=== PATIENT | male | born 1970 | race Caucasian/White ===

== ENCOUNTER 2016-12-25 15:45 | Emergency (ER) | payer SELFPAY ==
[2016-12-25 15:51] VITALS: BP 144/91; BMI 27.3
[2016-12-25] MEDS ORDERED: TORADOL 60 MG VIAL IM ONE (16:49)
[2016-12-25] MEDS ORDERED: TORADOL 60 MG VIAL ONE (16:50)
--- NOTE | 2016-12-25 17:06 | DR.GENAD ---
HPI - PCP Primary Care Physician: none - Complaint/Symptoms Chief Complaint Doctors Comments: Agree with statement Chief Complaint:: right foot pain after kicking a block of wood - Source History Provided: Patient - Mode of Arrival Mode of Arrival: Wheelchair - Timing Onset of Chief Complaint: 12/25/16 PMH - PMH Past Medical History: No Past Surgical History: No - Family History History of Family Medical Conditions: No - Social History Does patient currently use any type of tobacco product: Yes Have you used tobacco products in the last 12 months: Yes Type of Tobacco Use: Cigarettes How many years tobacco product used: 35 Does any household member use tobacco: No Alcohol Use: None Do you use any recreational Drugs:: No Lives With: Family Lives Where: Home - infectious screening In the last 2 months have you had wt loss of >10#?: NO Have you had fever, night sweats or hemotysis?: No Have you traveled outside the country in the last 6 months?: No Isolation: Standard ROS - Review of Systems Eyes: No Symptoms Reported ENTM: No Symptoms Reported Respiratoy: No Symptoms Reported Cardiovascular: No Symptoms Reported Gastrointestinal/Abdominal: No Symptoms Reported Genitourinary: No Symptoms Reported Neurological: No Symptoms Reported Musculoskeletal: No Symptoms Reported Integumentary: No Symptoms Reported Hematologic/Lymphatic: No Symptoms Reported Endocrine: No Symptoms Reported Psychiatric: No Symptoms Reported All Other Systems: Reviewed and Negative PE - Vital Signs Vitals: Temperature 98.5 F Pulse Rate 71 Respiratory Rate 18 Blood Pressure 144/91 O2 Sat by Pulse Oximetry 99 - General Limitations: No Limitations General Appearance: Alert, In No Apparent Distress - Head Head Exam: Normal Inspection, Atraumatic - Eyes Eye exam: Normal Appearance, PERRL, EOMI - ENT ENT Exam: Normal Exam External Ear Exam: Normal External Inspection TM/Canal Exam: Bilateral Normal Nose Exam: Normal Nose Exam Mouth Exam: Normal Inspection Throat Exam: Normal Inspection - Neck Neck Exam: Normal Inspection - Chest Chest Inspection: Normal Inspection - Respiratory Respiratory Exam: Normal Lung Sounds Bilat Respiratory Exam: Bilateral Clear to Auscultation - Cardiovascular Cardiovascular Exam: Regular Rate, Normal Rhythm - Abdominal Exam Abdominal Exam: Normal Inspection Abdominal Tenderness: negative: RUQ, RLQ, LUQ, LLQ, Epigastrium, Suprapubic, Diffuse, Mild, Moderate, Severe, Other - Extremities Extremities Exam: Normal Inspection - Back Back Exam: Normal Inspection - Neurologic Neurological Exam: Alert, Oriented X3, CN II-XII Intact - Psychiatric Psychiatric Exam: Normal Affect - Skin Skin Exam: Warm, Dry ROR - XRAY XRAY Interpreted by: Radiologist (x ray foot: Dorsal foot edema/swelling without acute fracture/subluxation observed) - Diagnosis Discharge Problem: Contusion of foot, right Qualifiers: Encounter type: initial encounter Qualified Code(s): S90.31XA - Contusion of right foot, initial encounter - Discharge Plan Condition: Stable - Follow ups/Referrals Follow ups/Referrals: NFD,None [Primary Care Provider] - 3 days - Instructions
--- NOTE | 2016-12-25 17:41 | RAD ---
HISTORY: Foot pain Study: Complete three view series of the right foot. Comparison: None Findings: No acute fracture, subluxation, or dislocation is identified. The Lisfranc joint is intact. No erosi ve changes are seen to suggest inflammatory arthritis. No lytic bony lesion or bone forming lesion i s evident. Dorsal foot edema is appreciated. The remaining visualized portions of the talus and ozzie caneus are unremarkable. No radiopaque foreign body is seen. IMPRESSION: 1. Dorsal foot edema/swelling without acute fracture/subluxation observed Reported By:
== END 2016-12-25 18:27 | disposition home or self-care (01) ==
LOC: ER 15:55
DX: S90.31XA Contusion of right foot, initial encounter (principal); X58.XXXA Exposure to other specified factors, initial encounter
CPT/HCPCS: 73630; 96372; 99282; J1885

== ENCOUNTER 2017-05-31 15:58 | Emergency (ER) | payer SELFPAY ==
[2017-05-31 16:03] VITALS: BP 117/69; BMI 27.3
--- NOTE | 2017-05-31 16:19 | DR.GENAD ---
HPI - PCP Primary Care Physician: MARIAM - Complaint/Symptoms Chief Complaint:: PATIENT HAS BEEN HAVING UPPER RIGHT SIDED ABD. PAIN THAT HAS BEEN GOING ON FOR 2 WEEKS BUT NOW HE HAS BEEN SICK ON HIS STOMACH AND THINKS HE MIGHT HAVE BEEN RUNNING A FEVER. - Source History Provided: Patient - Mode of Arrival Mode of Arrival: Ambulatory - Timing Onset of Chief Complaint: 05/17/17 PMH - PMH Past Medical History: No Past Surgical History: Yes Past Surgical History Comment: HERNIA TIMES 2 - Family History History of Family Medical Conditions: Yes Family Medical History: Diabetes Mellitus, Coronary Artery Disease - Social History Does patient currently use any type of tobacco product: Yes Have you used tobacco products in the last 12 months: Yes Type of Tobacco Use: Cigarettes Does any household member use tobacco: No Alcohol Use: None Do you use any recreational Drugs:: No Lives With: Family Lives Where: Home - infectious screening In the last 2 months have you had wt loss of >10#?: NO Have you had fever, night sweats or hemotysis?: No Have you traveled outside the country in the last 6 months?: No Isolation: Standard ROS - Review of Systems Eyes: No Symptoms Reported ENTM: No Symptoms Reported Respiratoy: No Symptoms Reported Cardiovascular: No Symptoms Reported Gastrointestinal/Abdominal: No Symptoms Reported Genitourinary: No Symptoms Reported Neurological: No Symptoms Reported Musculoskeletal: Chest wall (right) Integumentary: No Symptoms Reported Hematologic/Lymphatic: No Symptoms Reported Endocrine: No Symptoms Reported Psychiatric: No Symptoms Reported All Other Systems: Reviewed and Negative PE - Vital Signs Vitals: Temperature 98.3 F Pulse Rate 70 Respiratory Rate 20 Blood Pressure 117/69 O2 Sat by Pulse Oximetry 98 - General Limitations: No Limitations General Appearance: Alert, In No Apparent Distress - Head Head Exam: Normal Inspection - Eyes Eye exam: Normal Appearance - ENT ENT Exam: Normal Exam External Ear Exam: Normal External Inspection TM/Canal Exam: Bilateral Normal Nose Exam: Normal Nose Exam Mouth Exam: Normal Inspection Throat Exam: Normal Inspection - Neck Neck Exam: Normal Inspection - Chest Chest Inspection: Normal Inspection - Respiratory Respiratory Exam: Accessory Muscle Use Respiratory Exam: Bilateral Clear to Auscultation - Cardiovascular Cardiovascular Exam: Regular Rate, Normal Rhythm - Abdominal Exam Abdominal Exam: Normal Inspection - Extremities Extremities Exam: Normal Inspection, Full ROM - Back Back Exam: Normal Inspection, Tenderness - Neurologic Neurological Exam: Alert, Oriented X3, CN II-XII Intact - Psychiatric Psychiatric Exam: Normal Affect - Skin Skin Exam: Warm, Dry, Intact ROR - Labs Reviewed Result Diagrams: 05/31/17 16:26 05/31/17 16:26 Laboratory: WBC 7.7 X10^3/uL (3.6-10.0) 05/31/17 16: RBC 4.74 X10^6/uL (4.7-6.0) 05/31/17 16:26 Hgb 15.9 g/dL (13.5-18.0) 05/31/17 16:26 Hct 45.2 % (42.0-54.0) 05/31/17 16:26 MCV 95.4 fL (80.0-100.0) 05/31/17 16:26 MCH 33.6 pg (27.0-34.0) 05/31/17 16:26 MCHC 35.2 g/dL (33.0-35.0) H 05/31/17 16: RDW 12.4 % (11.6-16.5) 05/31/17 16:26 Plt Count 209 X10^3/uL (150.0-450.0) 05/31/17 16: MPV 8.8 fL (7.4-11.0) 05/31/17 16:26 Neut % 58.9 % (42.0-75.0) 05/31/17 16:26 Lymph % 31.8 % (21.0-51.0) 05/31/17 16:26 [place] % 6.6 % (0.0-13.0) 05/31/17 16:26 Eos % 1.8 % (0.9-2.9) 05/31/17 16:26 Baso % 0.9 % (0.2-1.0) 05/31/17 16:26 Neut # 4.5 x10^3/uL (2.2-4.8) 05/31/17 16:26 Lymph # 2.4 X10^3/uL (1.3-2.9) 05/31/17 16:26 [place] # 0.5 x10^3/uL (0.3-0.8) 05/31/17 16:26 Eos # 0.1 x10^3/uL (0.0-0.2) 05/31/17 16:26 Baso # 0.1 X10^3/uL (0.0-0.1) 05/31/17 16:26 Absolute Nucleated RBC 0.0 /100WBC 05/31/17 16:26 Sodium 141 mmol/L (136-145) 05/31/17 16:26 Corrected Sodium 142 mmol/L (136-145) 05/31/17 16:26 Potassium 4.0 mmol/L (3.5-5.1) 05/31/17 16:26 Chloride 105 mmol/L (98-107) 05/31/17 16:26 Carbon Dioxide 27.0 mmol/L (21-32) 05/31/17 16:26 BUN 19 mg/dL (7-18) H 05/31/17 16:26 Creatinine 1.19 mg/dL (0.70-1.30) 05/31/17 16:26 Est GFR (MDRD) Af Amer > 60 (>60) 05/31/17 16:26 Est GFR (MDRD) Non-Af > 60 (>60) 05/31/17 16:26 Glucose 123 mg/dL (65-99) H 05/31/17 16:26 Calcium 8.7 mg/dL (8.5-10.1) 05/31/17 16:26 Corrected Calcium TNP 05/31/17 16:26 Total Bilirubin 0.30 mg/dL (0.2-1.0) 05/31/17 16:26 AST 15 Units/L (15-37) 05/31/17 16:26 ALT 20 Units/L (12-78) 05/31/17 16:26 Alkaline Phosphatase 69 Units/L (46-116) 05/31/17 16:26 C-Reactive Protein 1.20 mg/L (0-3.0) 05/31/17 16:26 Total Protein 6.9 g/dL (6.4-8.2) 05/31/17 16:26 Albumin 3.5 g/dL (3.4-5.0) 05/31/17 16:26 Globulin 3.4 g/dL (2.5-4.5) 05/31/17 16:26 Albumin/Globulin Ratio 1.0 Ratio (1.1-2.1) L 05/31/17 16:26 - XRAY XRAY Interpreted by: Self (chest: negative) - Diagnosis Discharge Problem: Chest wall pain - Discharge Plan Condition: Stable - Follow ups/Referrals Follow ups/Referrals: José BECERRA [Primary Care Provider] - 3 days - Instructions
[2017-05-31] MEDS ORDERED: ZOFRAN TAB 4 MG PO ONE (16:21)
[2017-05-31] MEDS ORDERED: ZOFRAN TAB 4 MG ONE (16:25)
[2017-05-31 16:34] LABS: BASOPHILS # (AUTO) 0.1 X10^3/uL (0.0-0.1); BASOPHILS % (AUTO) 0.9 % (0.2-1.0); EOSINOPHILS # (AUTO) 0.1 x10^3/uL (0.0-0.2); EOSINOPHILS % (AUTO) 1.8 % (0.9-2.9); HEMATOCRIT 45.2 % (42.0-54.0); HEMOGLOBIN 15.9 g/dL (13.5-18.0); LYMPHOCYTES # (AUTO) 2.4 X10^3/uL (1.3-2.9); LYMPHOCYTES % (AUTO) 31.8 % (21.0-51.0); MEAN CORPUSCULAR HEMOGLOBIN 33.6 pg (27.0-34.0); MEAN CORPUSCULAR HGB CONC 35.2 g/dL (33.0-35.0); MEAN CORPUSCULAR VOLUME 95.4 fL (80.0-100.0); MEAN PLATELET VOLUME 8.8 fL (7.4-11.0); MONOCYTES # (AUTO) 0.5 x10^3/uL (0.3-0.8); MONOCYTES % (AUTO) 6.6 % (0.0-13.0); NEUTROPHILS # (AUTO) 4.5 x10^3/uL (2.2-4.8); NEUTROPHILS % (AUTO) 58.9 % (42.0-75.0); PLATELET COUNT 209 X10^3/uL (150.0-450.0); RED BLOOD COUNT 4.74 X10^6/uL (4.7-6.0); RED CELL DISTRIBUTION WIDTH 12.4 % (11.6-16.5); WHITE BLOOD COUNT 7.7 X10^3/uL (3.6-10.0)
[2017-05-31 16:46] LABS: ALANINE AMINOTRANSFERASE 20 Units/L (12-78); ALBUMIN 3.5 g/dL (3.4-5.0); ALKALINE PHOSPHATASE 69 Units/L (46-116); ASPARTATE AMINO TRANSFERASE 15 Units/L (15-37); BLOOD UREA NITROGEN 19 mg/dL (7-18); CALCIUM 8.7 mg/dL (8.5-10.1); CHLORIDE 105 mmol/L (98-107); COR NA(FOR HYPERGLY) 142 mmol/L (136-145); CREATININE 1.19 mg/dL (0.70-1.30); SODIUM 141 mmol/L (136-145); TOTAL PROTEIN 6.9 g/dL (6.4-8.2); eGFR BLACK RACES > 60 (>60); eGFR NON BLACK RACES > 60 (>60)
[2017-05-31] MEDS ORDERED: TORADOL 60 MG VIAL IM ONE (17:03)
[2017-05-31] MEDS ORDERED: TORADOL 60 MG VIAL ONE (17:06)
--- NOTE | 2017-05-31 18:04 | RAD ---
CHEST RADIOGRAPHS PA AND LATERAL VIEWS CLINICAL HISTORY: 47-year-old male with right-sided chest pain for 2 weeks COMPARISON: None. FINDINGS: The cardiopericardial silhouette is normal. There is no focal consolidation, pleural effus ion or pneumothorax. The lungs are well inflated. Pulmonary vascularity is normal. Imaged osseous str uctures are intact. Soft tissues are unremarkable. IMPRESSION: No acute cardiopulmonary process. Reported By:
== END 2017-05-31 17:24 | disposition home or self-care (01) ==
LOC: ER 16:04
DX: R07.89 Other chest pain (principal)
CPT/HCPCS: 36415; 71020; 80053; 85025; 86140; 96372; 99282; 99283; S0181; J1885